=== PATIENT | female | born 1970 | race Caucasian/White ===

== ENCOUNTER 2017-02-19 09:56 | Emergency (ER) | payer SELFPAY ==
--- NOTE | 2017-02-19 10:36 | ED Physician Documentation ---
General Adult - HISTORIAN Historian: patient - HPI Stated Complaint: Right Hand Pain Chief Complaint: General Adult Onset: hours Timing: still present Severity: moderate Further Comments: yes (Pt is a 46 yo female with R wrist pain. 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 Pain shoots into forearm.) - ROS CONST: no problems EYES/ENT: none CVS/RESP: none GI/: none MS/SKIN/LYMPH: other (R wrist pain) - PAST HX Past History: other (Thyroid d/o.) Surgeries/Procedures: hysterectomy, other (tonsillectomy) Allergies/Adverse Reactions: Allergies Allergy/AdvReac Type Severity Reaction Status Date / Time azithromycin [From Zithromax] Allergy Severe Hives Verified 02/19/17 10:04 clindamycin Allergy Severe Hives Verified 02/19/17 10:04 doxycycline Allergy Severe Hives Verified 02/19/17 10:04 levofloxacin [From Levaquin] Allergy Severe Hives Verified 02/19/17 10:04 metronidazole [From Flagyl] Allergy Severe Hives Verified 02/19/17 10:04 Metronidazole HCl Allergy Severe Hives Verified 02/19/17 10:04 [From Flagyl] Penicillins Allergy Severe Tongue Verified 02/19/17 10:04 Swelling sulfamethoxazole Allergy Intermediate Hives Verified 02/19/17 10:04 [Sulfamethoxazole] - SOCIAL HX Smoking History: cigarettes - FAMILY HX Family History: No - VITAL SIGNS Vital Signs: Vital Signs Temp Pulse Resp BP Pulse Ox 72 18 161/95 99 02/19/17 09:56 02/19/17 09:56 02/19/17 09:56 02/19/17 09:56 - REVIEWED ASSESSMENTS Nursing Assessment Reviewed: Yes Vitals Reviewed: Yes Progress - Progress Progress: NSAIDS wrist splint ED Results Lab/Radiology - Orders Orders: ED Orders Category Date Time Status WRIST 3 VIEWS OR MORE [RAD] Stat Exams 02/19/17 Ordered General Adult Physical Exam - PHYSICAL EXAM GENERAL APPEARANCE: mild distress NECK: normal inspection, supple RESPIRATORY: no resp distress SKIN: warm/dry, normal color EXTREMITIES: other (Tenderness R wrist; pos Tinel's and Phalen's sign.) NEURO: oriented X3, motor nml, sensation nml Discharge Clincal Impression: Acute carpal tunnel syndrome Qualifiers: Laterality: right Qualified Code(s): G56.01 - Carpal tunnel syndrome, right upper limb Referrals: Rudy Rios MD [Primary Care Provider] - Condition: Good Disposition: 01 HOME, SELF-CARE Decision to Admit: NO Decision Time: 11:25
[2017-02-19 11:37] VITALS: BP 164/92
--- NOTE | 2017-02-19 18:53 | Diagnostic Imaging Report ---
TREE STRATTON [facility] [address] [facility] [address] [address] Report Submission Date: Feb 19, 2017 11:20:45 AM CDT Patient Study Name: RAMOS WEEKS Date: Feb 19, 2017 10:40:14 AM CDT Modality Type: CR Gender: F Description: UPPER EXTREMITY : 74 Institution: [facility] Physician: TREE STRATTON Right wrist 3 views History: 2 weeks of wrist pain Findings: The wrist is unremarkable without fracture, dislocation, arthropathy, or focal bone lesion. Electronically signed on Feb 19, 2017 11:20:45 AM CDT by: Rogelio DE
== END 2017-02-19 11:35 | disposition home or self-care (01) ==
LOC: ED 09:56
DX: G56.01 Carpal tunnel syndrome, right upper limb (principal)
CPT/HCPCS: 73110; 99283; L3908

== ENCOUNTER 2017-05-23 22:45 | Emergency (ER) | payer SELFPAY ==
[2017-05-23] MEDS: KETOROLAC TROMETHAMINE 30 MG/1ML VIAL IVP ONE (23:30)
[2017-05-23] MEDS: 0.9 % SODIUM CHLORIDE 1,000 ML IV ONE (23:30)
[2017-05-24 00:02] LABS: eGFR (African) > 60; eGFR (Non-African) > 60
--- NOTE | 2017-05-24 00:16 | ED Physician Documentation ---
General Adult - HISTORIAN Historian: patient - HPI Stated Complaint: left hip pain Chief Complaint: General Adult Onset: minutes Timing: worse Further Comments: yes (46 year old female patient brought in for evaluation of left hip. Fell at home after drinking 12 beers. C/O severe left hip pain. Patient reports her left hip has been bothering her, "worse after falling". Unable to straighten left hip completely due to pain.) - ROS CONST: no problems EYES/ENT: none CVS/RESP: none GI/: none MS/SKIN/LYMPH: joint pain (left hip), other (abrasion left forearm and elbow) - PAST HX Past History: other (hypothyroidism) Surgeries/Procedures: other (ovarian cyst removed) Allergies/Adverse Reactions: Allergies Allergy/AdvReac Type Severity Reaction Status Date / Time azithromycin [From Zithromax] Allergy Severe Hives Verified 05/23/17 22:59 clindamycin Allergy Severe Hives Verified 05/23/17 22:59 doxycycline Allergy Severe Hives Verified 05/23/17 22:59 levofloxacin [From Levaquin] Allergy Severe Hives Verified 05/23/17 22:59 metronidazole [From Flagyl] Allergy Severe Hives Verified 05/23/17 22:59 Metronidazole HCl Allergy Severe Hives Verified 05/23/17 22:59 [From Flagyl] Penicillins Allergy Severe Tongue Verified 05/23/17 22:59 Swelling sulfamethoxazole Allergy Intermediate Hives Verified 05/23/17 22:59 [Sulfamethoxazole] Home Medications: Ambulatory Orders Medication Instructions Recorded Levothyroxine Sodium [Unithroid] 175 mcg PO QDAY 05/23/17 - SOCIAL HX Smoking History: cigarettes Alcohol Use: heavy (daily) - FAMILY HX Family History: No - VITAL SIGNS Vital Signs: Vital Signs Temp Pulse Resp BP Pulse Ox 75 16 151/109 98 05/23/17 22:55 05/23/17 22:55 05/23/17 22:55 05/23/17 22:55 - REVIEWED ASSESSMENTS Nursing Assessment Reviewed: Yes Vitals Reviewed: Yes Progress - Progress Progress: 0240 Will not discharge with pain medication. Patient is a daily drinker. Discussed Ramy canales and ERIN. ED Results Lab/Radiology - Lab Results Lab Results: Lab Results 05/23/17 11:44 Sodium 138 mmol/L mmol/L (136-145) Potassium 3.7 mmol/L mmol/L (3.5-5.0) Chloride 109 mmol/L mmol/L (98-110) Carbon Dioxide 26 mmol/L mmol/L (20-32) BUN 7 mg/dL L mg/dL (10-26) Creatinine 0.6 mg/dL mg/dL (0.4-1.5) Estimated Creat Clear 176 Est GFR ( Amer) > 60 (60 - ) Est GFR (Non-Af Amer) > 60 (60 - ) Glucose 97 mg/dL mg/dL (70-99) Calcium 9.4 mg/dL mg/dL (8.5-10.5) Total Bilirubin 0.3 mg/dL mg/dL (0.2-1.2) AST 18 U/L U/L (0-41) ALT 9 U/L U/L (0-45) Alkaline Phosphatase 64 U/L U/L (46-116) Total Protein 7.3 g/dL g/dL (6.0-8.5) Albumin 4.7 g/dL g/dL (3.0-5.5) Ethyl Alcohol 234.0 MG/DL H MG/DL (<10.0) - Radiology Radiology Impressions: Left hip 2 views History: Left hip pain after fall Findings: Soft tissue calcifications are observed along the lateral margin of the left hip. An avulsion fracture is considered less likely but cannot be excluded. The left hip is otherwise intact without dislocation or arthropathy. Impression: Left lateral periacetabular soft tissue calcification or less likely avulsion fracture. Electronically signed on May 24, 2017 12:14:24 AM CDT by: Rogelio Medina - Orders Orders: ED Orders Category Date Time Status Place IV Lock 1T Care 05/23/17 22:58 Active LT HIP 2VIEW COMPLETE [RAD] Stat Exams 05/23/17 Taken CBC/PLATELET/DIFF Stat Lab 05/23/17 11:48 Received CMP Stat Lab 05/23/17 11:44 Completed ETHANOL MEDICAL USE ONLY Stat Lab 05/23/17 11:44 Completed 0.9 % Sodium Chloride [Normal Saline] 1,000 ml Med 05/23/17 22:58 Discontinued IV NOW Ketorolac Tromethamine [Toradol] Med 05/23/17 23:24 Discontinued 30 mg IVP NOW ONE General Adult Physical Exam - PHYSICAL EXAM GENERAL APPEARANCE: strong smell of ETOH EENT: eye inspection normal, ENT inspection normal, pharynx normal, no signs of dehydration, SIRI, no nystagmus, TM's nml RESPIRATORY: no resp distress, chest non-tender, breath sounds normal CVS: reg rate & rhythm, heart sounds normal, equal pulses, no murmur, no gallop , PMI nml, no JVD, no friction rub, 24 ABDOMEN: soft, no organomegaly, normal bowel sounds, no abdominal bruit, no distension SKIN: warm/dry, normal color, other (abrasion left elbow and forearm) EXTREMITIES: tenderness (left hip, ROM limited due to pain) NEURO: oriented X3, CN's nml as tested, motor nml, sensation nml, mood/affect nml Discharge Clincal Impression: Intoxication, Left hip pain, Alcohol abuse Fall at home Qualifiers: Encounter type: initial encounter Qualified Code(s): W19.XXXA - Unspecified fall, initial encounter Referrals: Rudy Rios MD [Primary Care Provider] - 2 Days Home Medications: Ambulatory Orders Levothyroxine Sodium [Unithroid] 175 mcg PO QDAY 05/23/17 Condition: Stable Disposition: 01 HOME, SELF-CARE Decision to Admit: NO Decision Time: 02:14
[2017-05-24 00:34] LABS: BASOPHILS % 0.7 (0.0-1.5); EOSINOPHILS % 2.2 % (0.0-6.8); MEAN CORPUSCULAR VOLUME 94.8 fl (80.0-100.0); MONOCYTES % 4.7 % (0.0-11.0); NEUTROPHILS # 6.4 # k/uL (1.4-7.7)
--- NOTE | 2017-05-24 01:32 | Diagnostic Imaging Report ---
DARIA GASCA ([facility]) - ER [facility] [address] [facility].[address] [address] Report Submission Date: May 24, 2017 12:14:24 AM CDT Patient Study Name: RAMOS WEEKS Date: May 23, 2017 11:56:59 PM CDT Modality Type: CR Gender: F Description: PELVIS : 74 Institution: [facility] Physician: DARIA GASCA) - ER Left hip 2 views History: Left hip pain after fall Findings: Soft tissue calcifications are observed along the lateral margin of the left hip. An avulsion fracture is considered less likely but cannot be excluded. The left hip is otherwise intact without dislocation or arthropathy. Impression: Left lateral periacetabular soft tissue calcification or less likely avulsion fracture. Electronically signed on May 24, 2017 12:14:24 AM CDT by: Rogelio DE
[2017-05-24 03:15] VITALS: BP 108/70
--- NOTE | 2017-05-24 03:41 | Diagnostic Imaging Report ---
DARIA GASCA ([facility]) - ER [facility] [address] [facility] [address] Report Submission Date: May 24, 2017 2:16:56 AM CDT Patient Study Name: RAMOS WEEKS Date: May 24, 2017 1:12:46 AM CDT Modality Type: CT\SR Gender: F Description: CT PELVIS W/O CONTRAST : 74 Institution: [facility] Physician: DARIA GASCA) - ER CT pelvis without contrast Clinical history: Avulsion fracture Technique: Multiple contiguous axial images were taken of the pelvis without the use of contrast. Reformations obtained. Findings: There is a small calcification lateral to the anterior-inferior iliac spine which could reflect an avulsion fracture. Age indeterminate. There is no significant to muscular hematoma identified. Otherwise, no pelvic fractures identified. The pelvic soft tissues are unremarkable. Impression: Age indeterminate avulsion fracture of the left anterior-inferior iliac spine as described above. Electronically signed on May 24, 2017 2:16:56 AM CDT by: Nilson DE
== END 2017-05-24 02:30 | disposition home or self-care (01) ==
LOC: ED 22:45
DX: M25.552 Pain in left hip (principal); W19.XXXA Unspecified fall, initial encounter; Y93.9 Activity, unspecified; Y99.9 Unspecified external cause status; F10.129 Alcohol abuse with intoxication, unspecified
CPT/HCPCS: 72192; 73502; 80053; 80320; 85025; J1885; J7030; 96361; 96374; 99283; G0480; S1016

== ENCOUNTER 2018-04-12 18:06 | Emergency (ER) | payer SELFPAY ==
[2018-04-12] MEDS: MAG HYDROX/ALUMINUM HYD/SIMETH 30 ML, Lidocaine 2%Visc 15ml 20 MG, PHENobarb/HYOSCY/ATR... PO ONE ×3 (19:07)
[2018-04-12] MEDS: MAGNESIUM, ALUMINUM HYDROXIDE 30 ML UDC PO ONE (19:08)
[2018-04-12] MEDS: Lidocaine 2%Visc 15ml 20 MG/ML UDC ONE (19:08)
[2018-04-12 19:10] LABS: BASOPHILS % 0.4 (0.0-1.5); EOSINOPHILS % 3.3 % (0.0-6.8); MEAN CORPUSCULAR HEMOGLOBIN 30.8 pg (28.0-34.0); MEAN CORPUSCULAR VOLUME 95.3 fl (80.0-100.0); MONOCYTES % 4.6 % (0.0-11.0); NEUTROPHILS # 6.7 # k/uL (1.4-7.7)
[2018-04-12 19:24] LABS: eGFR (African) > 60; eGFR (Non-African) > 60
--- NOTE | 2018-04-12 19:29 | ED Physician Documentation ---
General Adult - HISTORIAN Historian: patient - HPI Stated Complaint: HTN Chief Complaint: General Adult Onset: days ago Timing: worse Further Comments: yes (47 year old female patient presents with complaint of headache; acid reflux; hypertension which started a few days ago. Patient reports she took 300mg of zantac out of the med cart at work today with no improvement. Reports BP 146/100 at work. Denies CP or SOB; denies N/V.) - ROS CONST: no problems EYES/ENT: none CVS/RESP: other (hypertension) GI/: other (epigastric pain) NEURO/PSYCH: headache - PAST HX Past History: none Other History: none Surgeries/Procedures: BTL, hysterectomy Allergies/Adverse Reactions: Allergies Allergy/AdvReac Type Severity Reaction Status Date / Time azithromycin [From Zithromax] Allergy Severe Hives Verified 04/12/18 18:24 clindamycin Allergy Severe Hives Verified 04/12/18 18:24 doxycycline Allergy Severe Hives Verified 04/12/18 18:24 levofloxacin [From Levaquin] Allergy Severe Hives Verified 04/12/18 18:24 metronidazole [From Flagyl] Allergy Severe Hives Verified 04/12/18 18:24 Metronidazole HCl Allergy Severe Hives Verified 04/12/18 18:24 [From Flagyl] Penicillins Allergy Severe Tongue Verified 04/12/18 18:24 Swelling sulfamethoxazole Allergy Intermediate Hives Verified 04/12/18 18:24 [Sulfamethoxazole] Home Medications: Ambulatory Orders Medication Instructions Recorded Hydrochlorothiazide [Hydrodiuril] 12.5 mg PO DAILY #30 tablet 04/12/18 Ranitidine HCl [Acid Track Watchman] 150 mg PO HS #30 tablet 04/12/18 - SOCIAL HX Smoking History: cigarettes - FAMILY HX Family History: No - VITAL SIGNS Vital Signs: Vital Signs Temp Pulse Resp BP Pulse Ox 98.1 F 75 16 151/94 99 04/12/18 18:24 04/12/18 19:21 04/12/18 18:24 04/12/18 18:24 04/12/18 18:24 - REVIEWED ASSESSMENTS Nursing Assessment Reviewed: Yes Vitals Reviewed: Yes Progress - Progress Progress: HTN and GERD treated with GI cocktail and clonidine while in Er Will start on ranitidine qhs and HCTZ daily; follow up with PCP for medical management. - EKG/XRAY/CT EKG: rhythm (SR, PVC, rate 77) ED Results Lab/Radiology - Lab Results Lab Results: Lab Results 04/12/18 04/12/18 19:05 19:05 WBC 10.40 K/ul K/ul (4.00-12.00) RBC 4.48 M/ul M/ul (3.90-5.20) Hgb 13.8 g/dL g/dL (12.0-16.0) Hct 42.7 % % (34.5-46.5) MCV 95.3 fl fl (80.0-100.0) MCH 30.8 pg pg (28.0-34.0) MCHC 32.3 g/dL g/dL (30.0-36.0) RDW 12.6 % % (11.3-14.3) Plt Count 245 K/mm3 K/mm3 (130-400) Neut % (Auto) 64.2 % % (39.0-79.0) Lymph % (Auto) 26.0 % % (16.0-50.0) Kane % (Auto) 4.6 % % (0.0-11.0) Eos % (Auto) 3.3 % % (0.0-6.8) Baso % (Auto) 0.4 (0.0-1.5) Neut # (Auto) 6.7 # k/uL # k/uL (1.4-7.7) Lymph # (Auto) 2.7 # k/uL # k/uL (0.6-4.0) Kane # (Auto) 0.5 # k/uL # k/uL (0.0-0.9) Eos # (Auto) 0.3 # k/uL # k/uL (0.0-0.6) Baso # (Auto) 0.0 # k/uL # k/uL (0.0-0.5) Reactive Lymphs % 1.4 % % (0.0-5.0) Reactive Lymphs # 0.2 # k/uL # k/uL (0.0-0.8) Sodium 139 mmol/L mmol/L (136-145) Potassium 3.6 mmol/L mmol/L (3.5-5.1) Chloride 105 mmol/L mmol/L (98-107) Carbon Dioxide 28 mmol/L mmol/L (22-30) BUN 13 mg/dL mg/dL (7-17) Creatinine 0.90 mg/dL mg/dL (0.52-1.04) Estimated Creat Clear 119 Est GFR ( Amer) > 60 (60 - ) Est GFR (Non-Af Amer) > 60 (60 - ) Glucose 106 mg/dL mg/dL (74-106) Calcium 9.0 mg/dL mg/dL (8.4-10.2) Total Bilirubin < 0.1 mg/dL L mg/dL (0.2-1.3) AST 14 U/L L U/L (15-46) ALT 14 U/L U/L (13-69) Alkaline Phosphatase 54 U/L U/L (38-126) Total Protein 6.8 g/dL g/dL (6.3-8.2) Albumin 4.0 g/dL g/dL (3.5-5.0) - Orders Orders: ED Orders Category Date Time Status Continuous EKG monitoring Q30M Care 04/12/18 18:21 Active CHEST 2VIEW [RAD] Stat Exams 04/12/18 19:01 Ordered CBC/PLATELET/DIFF Stat Lab 04/12/18 19:05 Completed CMP Stat Lab 04/12/18 19:05 Completed TROPONIN I (cTnI) Stat Lab 04/12/18 19:05 Received UA W/MICRO IF INDICATED Stat Lab 04/12/18 18:31 Ordered Lidocaine 2%Visc 15ml [Xylocaine] Med 04/12/18 19:03 Discontinued 300 mg .ROUTE .STK-MED ONE Mag Hydrox/Aluminum Hyd/Simeth [Mylanta] 30 ml Med 04/12/18 19:01 Discontinued Lidocaine 2%Visc 15ml [Xylocaine] 20 mg PHENobarb/HYOSCY/ATROPINE/SCOP [] 10 ml PO NOW Magnesium, Aluminum Hydroxide [Maalox] Med 04/12/18 19:03 Discontinued 30 ml PO .STK-MED ONE EKG WITH COMPARISON Routine Ther 04/12/18 Completed General Adult Physical Exam - PHYSICAL EXAM GENERAL APPEARANCE: mild distress EENT: eye inspection normal, ENT inspection normal, pharynx normal, no signs of dehydration, SIRI, no nystagmus, TM's nml RESPIRATORY: no resp distress, chest non-tender, breath sounds normal CVS: reg rate & rhythm, heart sounds normal, equal pulses, no murmur, no gallop , PMI nml, no JVD, no friction rub, 24 ABDOMEN: soft, no organomegaly, normal bowel sounds, no abdominal bruit, no distension SKIN: normal color, warm/dry, NR, INT, PAL, DR EXTREMITIES: non-tender, normal range of motion, no evidence of injury, no edema , J, DAY CARE PROVIDER NEURO: oriented X3, CN's nml as tested, motor nml, sensation nml, mood/affect nml Discharge Clincal Impression: Hypertension Qualifiers: Hypertension type: essential hypertension Qualified Code(s): I10 - Essential ( primary) hypertension GERD (gastroesophageal reflux disease) Qualifiers: Esophagitis presence: without esophagitis Qualified Code(s): K21.9 - Gastro- esophageal reflux disease without esophagitis Prescriptions: Hydrochlorothiazide [Hydrodiuril] 12.5 mg PO DAILY #30 tablet Ranitidine HCl [Acid Track Watchman] 150 mg PO HS #30 tablet Referrals: Rudy Rios MD [Primary Care Provider] - (Next week for BP recheck) Additional Instructions: Diagnosis: 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 Condition: Stable Disposition: 01 HOME, SELF-CARE Decision to Admit: NO Decision Time: 20:45
[2018-04-12] MEDS: CloNIDine HCL 0.1 MG TABLET PO ONE (19:48)
[2018-04-12] MEDS: KETOROLAC TROMETHAMINE 30 MG/1ML VIAL IVP ONE (19:55)
[2018-04-12 20:52] VITALS: BP 155/85
--- NOTE | 2018-04-13 06:49 | Diagnostic Imaging Report ---
DARIA MCGILL ([employer] [employer]) - ER [facility] [address] [address] Report Submission Date: April 12, 2018 7:43:30 PM CDT Patient Study Name: RAMOS RODRÍGUEZ Date: April 12, 2018 7:07:28 PM CDT Modality Type: DX Gender: F Description: CHEST : 74 Institution: [facility] Physician: DARIA MCGILL ([employer]LE DR[employer]INE[employer]) - ER Examination: PA and lateral chest. History: Evaluate lung shannon. CHEST PAIN, HIGH BLOOD PRESSURE, HEADACHE X3 DAYS (Hx) Comparison exam: None available. Findings: PA lateral chest demonstrate a normal cardiac and mediastinal silhouette. No focal infiltrate. No blunting of the costophrenic margins. Mild articular degenerative changes. Impression: No acute pulmonary process. Electronically signed on April 12, 2018 7:43:30 PM CDT by: Christian DE
== END 2018-04-12 20:45 | disposition home or self-care (01) ==
LOC: ED 18:06
DX: K21.9 Gastro-esophageal reflux disease without esophagitis (principal); I10 Essential (primary) hypertension
CPT/HCPCS: 71046; 80053; 84484; 85025; 93005; A9270; J1885; 96374; 99285; S1016

== ENCOUNTER 2018-04-23 09:42 | Outpatient (CLI) | payer SELFPAY | END 2018-04-23 09:43 | LOC: LAB 09:42 | PROVIDERS: ATTEND Family Medicine | DX: E03.9 Hypothyroidism, unspecified (principal) | CPT/HCPCS: 36415; 84443 ==

== ENCOUNTER 2018-05-25 13:43 | Outpatient (CLI) | payer SELFPAY | END 2018-05-25 13:45 | LOC: CARD 13:43 | PROVIDERS: ATTEND Internal Medicine Cardiovascular Disease | DX: I10 Essential (primary) hypertension (principal); R07.9 Chest pain, unspecified | CPT/HCPCS: 99213 ==

== ENCOUNTER 2018-06-29 17:31 | Emergency (ER) | payer SELFPAY ==
--- NOTE | 2018-06-29 18:44 | ED Physician Documentation ---
Lower Extremity Problem - HISTORIAN Historian: patient - HPI Stated Complaint: Bilateral Foot Pain Chief Complaint: Lower Extremity Problem Additional Information: Several week history of foot pain bilateral. Bilateral R>L. Patient denies any trauma to the feet area. No swelling or erythema noted. Seems to be getting worse. Has not had any previous problems. Location of Injury: R foot, L foot Onset: days ago Timing: still present, worse Duration: intermittent episodes Recent Injury: No Severity: moderate Quality: pain, tenderness. denies: swelling, numbness Exacerbated By: walking Relieved By: rest Associated Symptoms: denies: chest pain, shortness of breath, rapid heart rate, fainting - ROS CONST: no problems - PAST HX Past History: none, other (hypothroidism) PE Risk Factors: hypertension Surgeries/Procedures: none Immunizations: referred to PCP Allergies/Adverse Reactions: Allergies Allergy/AdvReac Type Severity Reaction Status Date / Time azithromycin [From Zithromax] Allergy Severe Hives Verified 04/12/18 18:24 clindamycin Allergy Severe Hives Verified 04/12/18 18:24 doxycycline Allergy Severe Hives Verified 04/12/18 18:24 levofloxacin [From Levaquin] Allergy Severe Hives Verified 04/12/18 18:24 metronidazole [From Flagyl] Allergy Severe Hives Verified 04/12/18 18:24 Metronidazole HCl Allergy Severe Hives Verified 04/12/18 18:24 [From Flagyl] Penicillins Allergy Severe Tongue Verified 04/12/18 18:24 Swelling sulfamethoxazole Allergy Intermediate Hives Verified 04/12/18 18:24 [Sulfamethoxazole] Home Medications: Ambulatory Orders Medication Instructions Recorded Ranitidine HCl [Acid Senior Environmental Practice Leader] 150 mg PO HS #30 tablet 04/12/18 Meloxicam [Mobic] 7.5 mg PO BID #60 tablet 06/29/18 - SOCIAL HX Smoking History: less than 1 pack/day (1/2 pppd) - FAMILY HX Family History: no significant history - VITAL SIGNS Vital Signs: Vital Signs Temp Pulse Resp BP Pulse Ox 98.1 F 74 18 120/68 99 06/29/18 17:35 06/29/18 18:54 06/29/18 18:54 06/29/18 18:54 06/29/18 18:54 - REVIEWED ASSESSMENTS Nursing Assessment Reviewed: Yes Vitals Reviewed: Yes ED Results Lab/Radiology - Radiology Radiology Impressions: Bilateral feet, 3 views each. HISTORY Bilateral foot pain, swelling. FINDINGS Bilateral plantar calcaneal spurs are present, left greater than right. Small right Achilles tendon spur is also present. There is no fracture, dislocation or abnormal bone destruction. IMPRESSION Mild degenerative change but no acute osseous abnormality. - Orders Orders: ED Orders Category Date Time Status BILAT FEET 3 VIEW [RAD] Stat Exams 06/29/18 Completed Lower Extremity Problem - EXAM General Appearance: mild distress Knees: bilateral: non-tender, normal inspection, normal range of motion, no evidence of injury Ankle: bilateral: non-tender, normal inspection, normal range of motion, no evidence of injury Foot: bilateral foot: normal range of motion, no evidence of injury, bone tenderness, pain (over the calcaneous, no bony abnl noted), N/A: ecchymosis, soft tissue tenderness (none), swelling (none) Neuro/Tendon: normal sensation EENT: eye inspection normal, ENT inspection normal, pharynx normal, no signs of dehydration RESPIRATORY: no resp distress, chest non-tender, breath sounds normal. No: wheezes, rales, rhonchi CVS: reg rate & rhythm, heart sounds normal, equal pulses, no murmur VASCULAR: no vascular compromise NEURO/PSYCH: oriented X3, motor nml, sensation nml, mood/affect nml, cognition normal SKIN: warm/dry, normal color BACK: normal inspection, no CVA tenderness Discharge Clincal Impression: Plantar fasciitis Prescriptions: Meloxicam [Mobic] 7.5 mg PO BID #60 tablet Referrals: Rudy Rios MD [Primary Care Provider] - 2 Days Additional Instructions: Do plantar fascitis exercises Try using a frozen water bottle as instructed. Take Mobic as directed. I will make appointment with Dr Leigh Condition: Stable Disposition: 01 HOME, SELF-CARE Decision to Admit: NO Date of Decison to Admit: 06/29/18 Decision Time: 18:40
[2018-06-29 19:03] VITALS: BP 120/68
--- NOTE | 2018-06-29 19:07 | Diagnostic Imaging Report ---
CYNTHAI ROMERO [facility] [address] [facility].[address] [address] Report Submission Date: Jun 29, 2018 6:38:53 PM CDT Patient Study Name: RAMOS RODRÍGUEZ Date: Jun 29, 2018 6:09:33 PM CDT Modality Type: DX Gender: F Description: LOWER EXTREMITY : 74 Institution: [facility] Physician: CYNTHIA ROMERO Bilateral feet, 3 views each. HISTORY Bilateral foot pain, swelling. FINDINGS Bilateral plantar calcaneal spurs are present, left greater than right. Small right Achilles tendon spur is also present. There is no fracture, dislocation or abnormal bone destruction. IMPRESSION Mild degenerative change but no acute osseous abnormality. Electronically signed on Jun 29, 2018 6:38:53 PM CDT by: Jose David DE
== END 2018-06-29 18:54 | disposition home or self-care (01) ==
LOC: ED 17:31
DX: M72.2 Plantar fascial fibromatosis (principal)
CPT/HCPCS: 99282

== ENCOUNTER 2018-08-08 18:32 | Emergency (ER) | payer SELFPAY ==
[2018-08-08] MEDS ORDERED: CEPHALEXIN 250 MG CAPSULE PO ONE (19:13)
[2018-08-08] MEDS ORDERED: CEPHALEXIN 250 MG CAPSULE ONE (19:14)
--- NOTE | 2018-08-08 19:17 | ED Physician Documentation ---
Upper Extremity Injury - HISTORIAN Historian: patient - HPI Stated Complaint: red swollen left elbow Chief Complaint: Upper Extremity Injury Onset: days ago (4) Where: home Severity: moderate Duration: worse Context: other (Insect bite) Associated Symptoms: denies: tingling, numbness distally, feeling loss Modifying Factors: other (Feels "tight" when fully straightened. More swelling and erythema today. ) Further Comments: yes (Noted bug bite 4 days ago. Slowly increased swelling and erythema. No fever. Mildly tender.) - ROS CONST: denies: fever CVS/RESP: denies: none NEURO: denies: none MS/SKIN/LYMPH: denies: none - PAST HX Past History: Rt handed Allergies/Adverse Reactions: Allergies Allergy/AdvReac Type Severity Reaction Status Date / Time azithromycin [From Zithromax] Allergy Severe Hives Verified 08/08/18 18:56 clindamycin Allergy Severe Hives Verified 08/08/18 18:56 doxycycline Allergy Severe Hives Verified 08/08/18 18:56 levofloxacin [From Levaquin] Allergy Severe Hives Verified 08/08/18 18:56 metronidazole [From Flagyl] Allergy Severe Hives Verified 08/08/18 18:56 Metronidazole HCl Allergy Severe Hives Verified 08/08/18 18:56 [From Flagyl] Penicillins Allergy Severe Tongue Verified 08/08/18 18:56 Swelling sulfamethoxazole Allergy Intermediate Hives Verified 08/08/18 18:56 [Sulfamethoxazole] Home Medications: Ambulatory Orders Medication Instructions Recorded Ranitidine HCl [Acid Bakeshop Cleaner] 150 mg PO HS #30 tablet 04/12/18 - SOCIAL HX Smoking History: non-smoker - FAMILY HX Family History: none - VITAL SIGNS Vital Signs: Vital Signs Temp Pulse Resp BP Pulse Ox 120/68 06/29/18 18:54 ED Results Lab/Radiology - Orders Orders: ED Orders Category Date Time Status Cephalexin [Keflex] Med 08/08/18 19:13 Discontinued 500 mg PO NOW ONE Upper Extremity Injury Physic - Physical Exam General Appearance: no acute distress, alert Wrist: normal inspection Elbow/Forearm: swelling (Mild with mild erythema.) Neuro/Vascular/Tendon: no vascular compromise Discharge Clincal Impression: Cellulitis, Bug bite Referrals: Rudy Rios MD [Primary Care Provider] - 2 Days (If worsens) Condition: Good Disposition: 01 HOME, SELF-CARE Decision to Admit: NO Decision Time: 19:19
[2018-08-08 19:28] VITALS: BP 156/97
== END 2018-08-08 19:34 | disposition home or self-care (01) ==
LOC: ED 18:32
DX: L03.90 Cellulitis, unspecified (principal); S30.860A Insect bite (nonvenomous) of lower back and pelvis, initial encounter; X58.XXXA Exposure to other specified factors, initial encounter; Y92.9 Unspecified place or not applicable; Y93.9 Activity, unspecified; Y99.9 Unspecified external cause status
CPT/HCPCS: 99283

== ENCOUNTER 2018-08-24 09:51 | Outpatient (CLI) | payer SELFPAY ==
--- NOTE | 2018-08-24 11:59 | Diagnostic Imaging Report ---
CANDY ARTHUR [facility] [address] [facility].[address] [address] Report Submission Date: Aug 24, 2018 10:42:13 AM CDT Patient Study Name: RAMOS RODRÍGUEZ Date: Aug 24, 2018 10:25:40 AM CDT Modality Type: US Gender: F Description: US LT LEG MASS : 74 Institution: [facility] Physician: CANDY ARTHUR Ultrasound left leg mass History: Palpable areas of the left foot Transverse and longitudinal images were obtained through the area of palpable concern along the left foot revealing 3 complex but predominantly solid masses with no internal color flow. There are 2 adjacent larger masses. The largest of these measures 3.7 x 1.7 x 1.0 cm in greatest dimension. The next largest measures 3.2 x 1.0 x 1.2 cm in greatest dimension and the smallest lesion measures 8 x 4 x 5 mm. These lesions are of uncertain etiology ultrasonographically. Consider MRI of the foot with and without gadolinium for further assessment. Impression: Three complex but predominantly solid masses are present in the area of palpable concern along the anterior left foot. No internal flow is detected within these masses but there is some peripheral blood flow. These masses are of uncertain etiology by ultrasound. Consider MRI of the foot with and without gadolinium for further assessment. Electronically signed on Aug 24, 2018 10:42:13 AM CDT by: Carolyne DE
== END 2018-08-24 09:53 ==
LOC: RAD 09:51
PROVIDERS: ATTEND Podiatrist Foot & Ankle Surgery
DX: R22.42 Localized swelling, mass and lump, left lower limb (principal)
CPT/HCPCS: 76882

== ENCOUNTER 2019-01-27 17:03 | Emergency (ER) | payer OTHER ==
[2019-01-27] MEDS: 0.9 % SODIUM CHLORIDE 1,000 ML IV ONE (17:38)
[2019-01-27] MEDS: PROMETHAZINE HCL 25 MG in 0.9 % SODIUM CHLORIDE 50 ML IV ONE (17:41)
[2019-01-27 17:51] LABS: MEAN CORPUSCULAR HEMOGLOBIN 30.2 pg (28.0-34.0)
[2019-01-27 17:52] LABS: BASOPHILS % 0.7 (0.0-1.5); EOSINOPHILS % 2.3 % (0.0-6.8); MONOCYTES % 6.7 % (0.0-11.0); NEUTROPHILS # 5.7 # k/uL (1.4-7.7)
[2019-01-27 17:57] LABS: eGFR (Non-African) > 60
--- NOTE | 2019-01-27 18:11 | ED Physician Documentation ---
General Adult - HISTORIAN Historian: patient - HPI Stated Complaint: n/v, CHAMBERLAIN, dizziness, chills Chief Complaint: Dizziness Additional Information: Patient is a 48-year-old female who presents to the ER with c/o Nausea & dry heaves, dizziness, headache, and chills. Symptoms started Thursday night (2 days ago). 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 She left work early today and went home and slept. She woke up still feeling ill. Onset: days ago Timing: still present Severity: moderate Modifying Factors: Has worked around patients/staff who have been ill Location: works in hospital setting Further Comments: no - ROS CONST: recent illness (was not feeling well last week with cough and congestion), chills EYES/ENT: none CVS/RESP: cough GI/: vomiting, nausea MS/SKIN/LYMPH: other (body aches) NEURO/PSYCH: headache, dizziness - PAST HX Past History: hypertension, other (hypothyroidism) Other History: none Surgeries/Procedures: BTL, hysterectomy Immunizations: influenza, UTD Allergies/Adverse Reactions: Allergies Allergy/AdvReac Type Severity Reaction Status Date / Time azithromycin [From Zithromax] Allergy Severe Hives Verified 01/27/19 17:29 clindamycin Allergy Severe Hives Verified 01/27/19 17:29 doxycycline Allergy Severe Hives Verified 01/27/19 17:29 levofloxacin [From Levaquin] Allergy Severe Hives Verified 01/27/19 17:29 metronidazole [From Flagyl] Allergy Severe Hives Verified 01/27/19 17:29 Metronidazole HCl Allergy Severe Hives Verified 01/27/19 17:29 [From Flagyl] Penicillins Allergy Severe Tongue Verified 01/27/19 17:29 Swelling sulfamethoxazole Allergy Intermediate Hives Verified 01/27/19 17:29 [Sulfamethoxazole] Home Medications: Ambulatory Orders Medication Instructions Recorded Ondansetron HCl Rapdis [Zofran Odt] 4 mg PO Q6 PRN #15 tab 01/27/19 - SOCIAL HX Smoking History: cigarettes, greater than 1 pack/day Alcohol Use: occasionally Drug Use: none - FAMILY HX Family History: Yes (mom & dad ) - VITAL SIGNS Vital Signs: Vital Signs Temp Pulse Resp BP Pulse Ox 98.7 F 80 16 172/98 99 01/27/19 17:03 01/27/19 17:03 01/27/19 17:03 01/27/19 17:03 01/27/19 17:03 ED Results Lab/Radiology - Lab Results Lab Results: Lab Results 01/27/19 01/27/19 17:35 17:35 WBC 9.40 K/ul K/ul (4.00-12.00) RBC 4.93 M/ul M/ul (3.90-5.20) Hgb 14.9 g/dL g/dL (12.0-16.0) Hct 45.2 % % (34.5-46.5) MCV 92.0 fl fl (80.0-100.0) MCH 30.2 pg pg (28.0-34.0) MCHC 32.9 g/dL g/dL (30.0-36.0) RDW 13.1 % % (11.3-14.3) Plt Count 288 K/mm3 K/mm3 (130-400) Neut % (Auto) 59.9 % % (39.0-79.0) Lymph % (Auto) 30.4 % % (16.0-50.0) Gilchrist % (Auto) 6.7 % % (0.0-11.0) Eos % (Auto) 2.3 % % (0.0-6.8) Baso % (Auto) 0.7 (0.0-1.5) Neut # (Auto) 5.7 # k/uL # k/uL (1.4-7.7) Lymph # (Auto) 2.9 # k/uL # k/uL (0.6-4.0) Gilchrist # (Auto) 0.6 # k/uL # k/uL (0.0-0.9) Eos # (Auto) 0.2 # k/uL # k/uL (0.0-0.6) Baso # (Auto) 0.1 # k/uL # k/uL (0.0-0.5) Sodium 140 mmol/L mmol/L (136-145) Potassium 4.0 mmol/L mmol/L (3.5-5.1) Chloride 103 mmol/L mmol/L (98-107) Carbon Dioxide 26 mmol/L mmol/L (22-30) BUN 9 mg/dL mg/dL (7-17) Creatinine 0.70 mg/dL mg/dL (0.52-1.04) Estimated Creat Clear 179 Est GFR ( Amer) > 60 (60 - ) Est GFR (Non-Af Amer) > 60 (60 - ) Glucose 91 mg/dL mg/dL (74-106) Calcium 9.0 mg/dL mg/dL (8.4-10.2) Total Bilirubin 0.5 mg/dL mg/dL (0.2-1.3) AST 15 U/L U/L (15-46) ALT < 6 U/L L U/L (13-69) Alkaline Phosphatase 53 U/L U/L (38-126) Total Protein 6.9 g/dL g/dL (6.3-8.2) Albumin 4.4 g/dL g/dL (3.5-5.0) - Radiology Radiology Impressions: Chest, 2 view History: CXR, COUGH, CONGESTION, DIZZINESS, CHILLS, N/V SINCE TUES., SMOKER Findings: The heart size is normal. The lungs are clear. There is no pleural ef fusion or pneumothorax identified. The osseous structures are normal. Impression: 1. No acute pulmonary disease. Electronically signed on Jan 27, 2019 6:04:01 PM POPULATION GENETICIST by: Lm Nur - Orders Orders: ED Orders Category Date Time Status Place IV Lock 1T Care 01/27/19 17:21 Active CHEST 2VIEW [RAD] Urgent Exams 01/27/19 Ordered CBC/PLATELET/DIFF Stat Lab 01/27/19 17:35 Completed CMP Stat Lab 01/27/19 17:35 Completed INFLUENZA A&B Stat Lab 01/27/19 17:21 Ordered URINALYSIS Routine Lab 01/27/19 Ordered 0.9 % Sodium Chloride [Normal Saline] 1,000 ml Med 01/27/19 17:32 Active IV Q1H Promethazine HCl [Phenergan] 25 mg Med 01/27/19 17:32 Discontinued 0.9 % Sodium Chloride [Normal Saline] 50 ml IV NOW General Adult Physical Exam - PHYSICAL EXAM GENERAL APPEARANCE: mild distress EENT: eye inspection normal, ENT inspection normal, pharynx normal, SIRI NECK: normal inspection RESPIRATORY: no resp distress, chest non-tender, breath sounds normal CVS: reg rate & rhythm, heart sounds normal, equal pulses ABDOMEN: soft, normal bowel sounds, non-tender SKIN: warm/dry, pallor EXTREMITIES: normal range of motion, no edema NEURO: oriented X3, CN's nml as tested, motor nml, sensation nml, mood/affect nml Discharge Clincal Impression: Viral syndrome Prescriptions: Ondansetron HCl Rapdis [Zofran Odt] 4 mg PO Q6 PRN #15 tab PRN Reason: Nausea / Vomiting Referrals: Rudy Rios MD [Primary Care Provider] - 2 Days Additional Instructions: Increase fluid intake Rest Stop Smoking Take Zofran as directed Monitor blood pressure Follow up with PCP next week if no improvement Disposition: 01 HOME, SELF-CARE Decision to Admit: NO Decision Time: 19:20
[2019-01-27 19:13] LABS: APPEARANCE,URINE CLEAR (CLEAR); COLOR,URINE YELLOW (YELLOW)
[2019-01-27 19:14] LABS: OCCULT BLOOD,URINE NEGATIVE (NEGATIVE); UROBILINOGEN URINE 0.2 Eu (0.2-1.0)
[2019-01-27 19:24] VITALS: BP 121/71
--- NOTE | 2019-01-28 03:55 | Diagnostic Imaging Report ---
ARGENTINA MATIAS [facility] [address] [facility].[address] [address] Report Submission Date: Jan 27, 2019 6:04:01 PM WALLPAPER CLEANER Patient Study Name: RAMOS RODRÍGUEZ Date: Jan 27, 2019 5:39:57 PM WALLPAPER CLEANER Modality Type: DX Gender: F Description: CHEST 2VIEW : 74 Institution: [facility] Physician: ARGENTINA MATIAS Chest, 2 view History: CXR, COUGH, CONGESTION, DIZZINESS, CHILLS, N/V SINCE ., SMOKER Findings: The heart size is normal. The lungs are clear. There is no pleural effusion or pneumothorax identified. The osseous structures are normal. Impression: 1. No acute pulmonary disease. Electronically signed on Jan 27, 2019 6:04:01 PM WALLPAPER CLEANER by: Lm DE
== END 2019-01-27 19:00 | disposition home or self-care (01) ==
LOC: ED 17:03
DX: B34.9 Viral infection, unspecified (principal); Z72.0 Tobacco use
CPT/HCPCS: 36415; 71046; 80053; 81002; 85025; 87400; 96365; 99283; 99284; J2550; J7030; S1016

== ENCOUNTER 2019-02-22 11:44 | Outpatient (CLI) | payer OTHER ==
--- NOTE | 2019-02-22 13:40 | Diagnostic Imaging Report ---
CANDY ARTHUR [facility] [address] [facility] [address] [address] Report Submission Date: Feb 22, 2019 1:32:15 PM CDT Patient Study Name: RAMOS RODRÍGUEZ Date: Feb 22, 2019 12:01:46 PM CDT Modality Type: DX Gender: F Description: TOES 2 VIEWS OR MORE : 74 Institution: [facility] Physician: CANDY ARTHUR EXAMINATION: TOES 2 VIEWS OR MORE HISTORY: CYSTS ON TOP OF BOTH FEET. STANDING VIEWS. DR ARTHUR REQUESTED ADDITIONAL VIEWS, SEEN ON OTHER STUDY (SAME ACCESSION NUMBER) (Hx) / ITS.REASON chest (Pt comments) COMPARISON: None FINDINGS/IMPRESSION: No acute fracture or dislocation is identified in the metatarsals of either foot. No soft tissue abnormality is identified. Electronically signed on Feb 22, 2019 1:32:15 PM CDT by: Abner ARTHUR CANDY [facility] [address] [facility] [address] [address] Report Submission Date: Feb 22, 2019 1:28:21 PM CDT Patient Study Name: RAMOS RODRÍGUEZ Date: Feb 22, 2019 11:50:38 AM CDT Modality Type: DX Gender: F Description: BILAT FEET 3 VIEW : 74 Institution: [facility] Physician: CANDY ARTHUR EXAMINATION: BILAT FEET 3 VIEW HISTORY: CYSTS ON TOP OF BOTH FEET. STANDING VIEWS. DR ARTHUR REQUESTED ADDITIONAL VIEWS, SEEN ON OTHER STUDY (SAME ACCESSION NUMBER) (Hx) / ITS.REASON chest (Pt comments) COMPARISON: None FINDINGS: Right foot: The osseous structures are intact and well aligned without acute fracture or dislocation. There is a mild 1st metatarsophalangeal joint arthritis. Bone density is normal. No soft tissue swelling is seen. Calcaneal spurs are noted. Left foot: The osseous structures are intact and well aligned without acute fracture or dislocation. The joint spaces are preserved. Bone density is normal. A large calcaneal spur is noted. There is soft tissue thickening in the region of the reported top of foot cysts without calcification. IMPRESSION: 1. Left foot: Soft tissue thickening in the region of the reported top of foot cysts without evidence of associated calcification or underlying bony abnormality. Calcaneal spur. 2. Right foot: No evidence of soft tissue abnormality. Calcaneal spurs. Electronically signed on Feb 22, 2019 1:28:21 PM CDT by: Abner DE
== END 2019-02-22 11:46 ==
LOC: RAD 11:44
PROVIDERS: ATTEND Podiatrist Foot & Ankle Surgery
DX: M72.2 Plantar fascial fibromatosis (principal); M25.80 Other specified joint disorders, unspecified joint

== ENCOUNTER 2019-03-09 13:49 | Outpatient (CLI) | payer OTHER ==
--- NOTE | 2019-03-10 17:21 | OP Clinic Progress Note ---
SUBJECTIVE: Della Pruett is a 48-year-old female who presented to the clinic today mainly for follow-up of the left foot soft tissue masses. She is here for a preop visit. Upon our discussion she admits that she has a tobacco dependency for which she is smoking about a half pack of cigarettes per day. After a long discussion today she understands that we will need to postpone surgery until she is free of smoking for at least 1 month. She does not admit to any fevers, chills, nausea, vomiting, shortness of breath or chest pain at this time. She is using a boot on the right foot due to her pain under the tibial sesamoid. She states it helps with the boot. She is continuing to have some pain with the masses on the left foot with pressure with shoes. Her primary care physician is Dr. Rios. She understands we may need clearance from him as well before surgery. OBJECTIVE: Vitals: Temperature 98.4 degrees Fahrenheit, heart rate 78, blood pressure 114/40 which was retaken again and found to be 137/92. O2 saturation is 98% on room air. Pain level is 8/10. Vascular: 2+ DP and PT pulses, left foot. Capillary refill time is slightly delayed at about 3-4 seconds to the toes of the left foot. There is no edema noted, however, there is soft tissue masses that are palpable, left foot. Musculoskeletal: There is still noted a large dorsal mass of the left second intermetatarsal area. This is palpated to be a soft tissue mass fairly firm and noted to extend from over the first to the second metatarsal and also between the first and second metatarsals on the MRI. There are no other gross abnormalities noted at this time, left foot. The right foot was not examined today as we are focused on the preop appointment today of the left. Neurologic: Light touch sensation is intact to the toes, left foot. Psychiatric: Mental status is grossly normal. Affect is normal. ASSESSMENT AND PLAN: Soft tissue mass; M79.9 with a bulla underneath left foot. After a long discussion about the planned procedure including consent and so forth and discussing bleeding, infection and possibility of not healing as well as need for additional surgery or hematoma or infection that could lead to amputation or loss of life, the patient has agreed both by written and verbal consent to go for the surgery at this time. However, after further discussion and finding out that she has a tobacco dependency I decided that I do not feel comfortable doing surgery on her until she shows me that she has quit smoking for at least 1 month. The patient is disappointed but willing to do so. She will work on lessening her smoking over the next week to week and a half and make sure she has quit before 1 month before surgery. Our plan is to plan for surgery on 04/20/19. She knows she needs to see me again for another preop appointment where we will do a full physical exam and everything including consent forms sometime in early March. The patient understands that this is the plan and elective surgery is difficult for me to feel comfortable going forward with when we are dealing with smoking. The patient will return to the clinic in early March for a preop appointment officially. I believe that we will need to consider getting clearance from Dr. Rios for surgery as he is his primary care doctor as well. We reviewed her MRI together as well today. We will likely get a CBC, CMP, EKG and chest x-ray for preop labs at that time. The patient has no questions at this time. We will see her in the beginning of March. Louis Leigh, Rosie.P.M. (Dictated/Not Signed) Tonie Job#: [id number] MTDD
== END 2019-03-09 13:51 ==
LOC: POD 13:49
PROVIDERS: ATTEND Podiatrist Foot & Ankle Surgery
DX: M79.9 Soft tissue disorder, unspecified (principal); R23.8 Other skin changes; F17.210 Nicotine dependence, cigarettes, uncomplicated
CPT/HCPCS: 99212

== ENCOUNTER 2019-03-31 08:14 | Outpatient (CLI) | payer OTHER ==
--- NOTE | 2019-04-04 07:57 | History and Physical Report ---
CHIEF COMPLAINT: Left foot masses. HISTORY OF PRESENT ILLNESS/INDICATION FOR PLANNED PROCEDURE: Della Pruett is a 48-year-old female who presents to the clinic today for follow-up of left foot soft tissue masses. We have planned to excise these masses. She has had an MRI done showing multiple masses mainly between and over the first and second metatarsals of the left foot. The patient was seen previously on 03/09/19 where we found out that she was smoking regularly. She since then has quit and she has been quit for just over 1 month now and has not smoked any cigarettes or done any sort of nicotine since then. The patient is committed and understands the importance of continuing to stay off of smoking after surgery as well while healing. The patient presents today for a full History and Physical exam in preparation for surgery that hopefully will be performed on 04/20/19. The patient does not admit to any fevers, chills, nausea, vomiting, shortness of breath or chest pain at this time. This patient has been dealing with these masses in her left foot for quite some time now. They have grown to a size that have become painful with any sort of shoegear due to pressure over the top of the mass. The patient would like to have it removed as it has been difficult for her and painful for awhile now. PAST MEDICAL HISTORY: The patient denies a history of diabetes, hepatitis, bleeding disorders, AIDS or HIV, anesthesia problems in the past, cardiovascular disease, COPD or pulmonary disease, stroke nor substance abuse. The patient does admit to having previously smoked a half pack per day of cigarettes but she has quit just over 1 month ago and has not done any nicotine or cigarettes since then. She also admits to ethyl alcohol 1-2 times per week. PAST SURGICAL HISTORY: She had a tonsillectomy performed previously. She also had a partial hysterectomy performed which was back in 1997. She denies any anesthesia issues during that surgery. FAMILY HISTORY: She admits that her dad has a history of CHF as well as hypertension. Her mom has a history of chronic immune demyelinating polyneuropathy. SOCIAL AND OCCUPATIONAL HISTORY: The patient works at the hospital. She also has 2 stairs getting into her house. She has been using a boot on the right leg for something else and feels that she will do just fine using a boot on her left side when she switches the boot to the left side after surgery. REVIEW OF SYSTEMS: General: The patient denies any overall sickness or discomfort. Skin: No rashes or abnormal skin changes recently. Eyes: She denies any visual changes or pain in the eyes. Cardiovascular: No palpitations or chest pain. Gastrointestinal: No blood or pain in bowel movements. Genitourinary: No blood or pain with urination. Neurologic: The patient admits to occasional tingling that is in the left great toe area mainly on occasion. Ears, nose and throat: No trouble swallowing, pain or any issues in those areas. Pulmonary: No shortness of breath. Musculoskeletal: Left foot soft tissue masses that she is aware of. She also is aware of recent diagnosis of right tibial sesamoiditis which we have had her in a boot for recently and she is having some improvement slightly. Psychiatric: No history of anxiety or depression. CURRENT MEDICATIONS: Hydrochlorothiazide 25 mg daily by mouth; levothyroxine 0.175 mcg daily by mouth. The patient also admits to some herbal supplements which she was discouraged from using the 2 weeks leading up to surgery. The patient understands. ALLERGIES AND REACTIONS: THE PATIENT ADMITS TO HAVING A REACTION OF HIVES WITH FLAGYL, AZITHROMYCIN, BACTRIM, CLINDAMYCIN, DOXYCYCLINE, AND LEVOFLOXACIN. THE PATIENT ALSO ADMITS TO HAVING A BLACK TONGUE AND SWELLING WHEN SHE TOOK PENICILLIN. SHE ADMITS THAT THE ONLY MEDICATION SHE KNOWS SHE IS FINE ON IS KEFLEX AND SHE ADMITS THAT SHE WAS PLACED ON A Z-GEOFFREY WITH BENADRYL AND SHE DID WELL WITH THAT. SHE IS VERY LIMITED ON ANTIBIOTICS THAT CAN BE USED. PERTINENT PHYSICAL EXAM: Mental status: The patient is alert, awake and oriented x3. Head and neck: She is atraumatic, and normocephalic. No tracheal deviation. Eyes: Extraocular movements are intact in all directions as well as concentrically. No obvious issues upon visual exam grossly. Heart: Normal S1 and S2 rhythm. Neurologic: Light touch sensation is intact and symmetric to bilateral lower extremities. Ears, nose and throat: There is no obvious tracheal deviation. There is no pain with palpation in front of or behind the ears, or under the jaw. Lungs: Clear to auscultation bilaterally. Vascular: 2+ DP and PT pulses, left foot. Capillary refill time is less than 3 seconds to the toes, left foot. There is no edema noted, however, there are soft tissue masses noted. Musculoskeletal: There is a prominent soft tissue mass noted between the first and second metatarsals and slightly overlying the second metatarsal, left foot. This seems encapsulated upon MRI. There is mild pain with palpation if I press too hard. There are no other gross abnormalities noted, left foot. Lymph: There are no palpable lymph nodes along the jaw line nor preauricular or postauricular bilaterally. ASSESSMENT AND PLAN: 1. Soft tissue masses, left foot. 2. Preoperative labs. 3. Right tibial sesamoiditis (from previous exam). Due to the long nature of these soft tissue masses and increase in size that have now become painful to the patient we have decided to obtain an MRI which demonstrated multiple soft tissue masses, likely ganglion cyst versus multiloculated lipoma. The patient has elected to go ahead and have these removed at this time. She has done her part to quit smoking and has stopped smoking over 1 month ago and has been free of any sort of cigarettes or nicotine since then. She understands she needs to continue this non-smoking while she is healing at least. The risks and benefits of soft tissue masses excision of the left foot was discussed with the patient that include but are not limited to bleeding, infection, possible recurrence of the soft tissue masses, possible hematoma which could also lead to infection or additional procedure to remove the hematoma, loss of limb and loss of life and numbness. The patient understood the risks and benefits and has agreed to go forward with surgery at this time. The consent was signed and placed in the chart. A second in depth illustration and explanation of the plan for surgery pre and postoperatively were discussed with the patient. This includes planning on being in a boot for potentially 4-6 weeks at a minimum with potential to increase or decrease in time. The patient understands that she will not be able to eat or drink anything after midnight the night before surgery. She was told no anti-inflammatory medications such as ibuprofen and Motrin 1 week before surgery. No herbal medicines/diet drugs allowed 2 weeks before surgery. This was all discussed with the patient today. She signed as well seeing an illustration of where the soft tissues masses will be located and where the incision will take place and removed. She also understands that we will likely have to place a drain to try and prevent a hematoma. She initialed understanding this as well. More in depth discussion was had with the patient regarding pre and postoperative information. The patient has no further questions at this time. She is looking forward to having these removed and is planning for surgery on the of this month as long as we can get it approved and have the surgical staff we need. The patient will also have a clearance form sent over by Dr. Rios who is her primary care doctor. As long as we have clearance from him as well as her CBC, CMP, EKG and chest x-ray all look good we will be able to likely plan on surgery for the end of this month. We will plan on seeing the patient again later this month. She knows to come see me for a first metatarsal head cutout of an insert that she can use in her right shoe while she ends up moving the boot to the left foot in order to offload that tibial sesamoid that has been a little bit in pain. We discussed that we may be able to do a steroid injection in the first metatarsophalangeal joint of the right foot. I would like to wait on doing any sort of steroid injection until after surgery and after she has healed, however, in order to limit any chance of decreased healing during that time. We will have to wait until she is healed in order to consider doing more treatment on that right first metatarsophalangeal joint to the sesamoiditis area. The patient has no further questions and we will see her later this month for surgery. We will notify her of any issues or plans for more definitive surgery for 04/20/19 hopefully at 7 a.m. This will likely take approximately 90 minutes and we may consider using an ultrasound machine to try and make sure we got everything out if possible. We will also need a MANDA drain. We will plan on a MAC with local unless Anesthesia deems it necessary to transition her to a general anesthesia. The patient understands this. Louis Leigh D.P.M. (Dictated/Not Signed) Tonie Job#: [id number] MTDD
== END 2019-03-31 08:16 ==
LOC: POD 08:14
PROVIDERS: ATTEND Podiatrist Foot & Ankle Surgery
DX: Z01.812 Encounter for preprocedural laboratory examination (principal); M79.89 Other specified soft tissue disorders
CPT/HCPCS: 99213

== ENCOUNTER 2019-04-06 10:40 | Outpatient (CLI) | payer OTHER ==
[2019-04-06 11:02] LABS: BASOPHILS % 0.5 % (0.0-1.5); EOSINOPHILS % 2.2 % (0.0-6.8); MEAN CORPUSCULAR HEMOGLOBIN 30.4 pg (28.0-34.0); MONOCYTES % 6.1 % (0.0-11.0); NEUTROPHILS # 7.4 # k/uL (1.4-7.7)
== END 2019-04-06 10:43 ==
LOC: LAB 10:40
PROVIDERS: ATTEND Podiatrist Foot & Ankle Surgery
DX: Z01.812 Encounter for preprocedural laboratory examination (principal); M25.872 Other specified joint disorders, left ankle and foot; R22.42 Localized swelling, mass and lump, left lower limb
CPT/HCPCS: 36415; 80053; 85025

== ENCOUNTER 2019-04-25 11:23 | Outpatient (CLI) | payer OTHER | END 2019-04-25 11:50 | LOC: POD 11:23 | PROVIDERS: ATTEND Podiatrist Foot & Ankle Surgery | DX: Z47.81 Encounter for orthopedic aftercare following surgical amputation (principal); Z89.432 Acquired absence of left foot | CPT/HCPCS: 87070; 99213 ==

== ENCOUNTER 2019-05-05 10:50 | Outpatient (CLI) | payer OTHER | END 2019-05-05 11:15 | LOC: POD 10:50 | PROVIDERS: ATTEND Podiatrist Foot & Ankle Surgery | DX: Z48.817 Encounter for surgical aftercare following surgery on the skin and subcutaneous tissue (principal) ==

== ENCOUNTER 2019-05-12 10:55 | Outpatient (CLI) | payer OTHER | END 2019-05-12 11:05 | LOC: POD 10:55 | PROVIDERS: ATTEND Podiatrist Foot & Ankle Surgery | DX: Z48.817 Encounter for surgical aftercare following surgery on the skin and subcutaneous tissue (principal) | CPT/HCPCS: 99213 ==

== ENCOUNTER 2019-05-18 15:00 | Outpatient (CLI) | payer OTHER | END 2019-05-18 15:30 | LOC: POD 15:00 | PROVIDERS: ATTEND Podiatrist Foot & Ankle Surgery | DX: Z48.814 Encounter for surgical aftercare following surgery on the teeth or oral cavity (principal) | CPT/HCPCS: 99213 ==

== ENCOUNTER 2019-07-13 13:45 | Outpatient (CLI) | payer OTHER ==
[2019-06-20 19:18] VITALS: BP 151/98
== END 2019-07-13 13:47 ==
LOC: LAB 13:45
PROVIDERS: ATTEND Family Medicine
DX: M25.539 Pain in unspecified wrist (principal); E03.9 Hypothyroidism, unspecified
CPT/HCPCS: 36415; 84443

== ENCOUNTER 2019-10-17 13:54 | Emergency (ER) | payer OTHER ==
--- NOTE | 2019-10-17 14:22 | ED Physician Documentation ---
General Adult - HISTORIAN Historian: patient - HPI Stated Complaint: L hip pain Chief Complaint: General Adult Onset: other (bagan > 1 month ago) Timing: still present, worse Severity: moderate Further Comments: yes (Pt is a 49 yo female with L hip pain that began more than a month ago. Pain has been getting worse and sometime wakes pt up at night. Pt has been using Tylenol/Motrin. Worse with weight bearing.) - ROS CONST: no problems EYES/ENT: none CVS/RESP: none GI/: none MS/SKIN/LYMPH: other (L hip pain) - PAST HX Past History: other (GERD, HTN, Thyroid d/o.) Surgeries/Procedures: hysterectomy, other (tonsillectomy, ortho surg.) Allergies/Adverse Reactions: Allergies Allergy/AdvReac Type Severity Reaction Status Date / Time azithromycin [From Zithromax] Allergy Severe Hives Verified 10/17/19 14:09 clindamycin Allergy Severe Hives Verified 10/17/19 14:09 doxycycline Allergy Severe Hives Verified 10/17/19 14:09 levofloxacin [From Levaquin] Allergy Severe Hives Verified 10/17/19 14:09 metronidazole [From Flagyl] Allergy Severe Hives Verified 10/17/19 14:09 Metronidazole HCl Allergy Severe Hives Verified 10/17/19 14:09 [From Flagyl] Penicillins Allergy Severe Tongue Verified 10/17/19 14:09 Swelling sulfamethoxazole Allergy Intermediate Hives Verified 10/17/19 14:09 [Sulfamethoxazole] - SOCIAL HX Smoking History: cigarettes - FAMILY HX Family History: No - VITAL SIGNS Vital Signs: Vital Signs Temp Pulse Resp BP Pulse Ox 98.4 F 83 16 151/78 98 10/17/19 13:55 10/17/19 13:55 10/17/19 13:55 10/17/19 13:55 10/17/19 13:55 - REVIEWED ASSESSMENTS Nursing Assessment Reviewed: Yes Vitals Reviewed: Yes Progress - Progress Progress: Toradol 60 mg IM Solu-medrol 125 mg IM Rx [place] (5/325). Take one or two tablets by mouth every 4 to 6 hours as needed for moderate to severe pain. Ortho referral pending. ED Results Lab/Radiology - Orders Orders: ED Orders Category Date Time Status LT HIP 2VIEW COMPLETE [RAD] Stat Exams 10/17/19 Ordered PELVIS AP 1 OR 2 VIEWS [RAD] Stat Exams 10/17/19 Ordered General Adult Physical Exam - PHYSICAL EXAM GENERAL APPEARANCE: mild distress NECK: normal inspection, supple RESPIRATORY: no resp distress, chest non-tender, breath sounds normal CVS: reg rate & rhythm, heart sounds normal ABDOMEN: soft, no organomegaly, normal bowel sounds BACK: normal inspection SKIN: warm/dry, normal color EXTREMITIES: other (L hip pain, worse with flexion/extension; no LE rotation or shortening.) NEURO: oriented X3, motor nml, sensation nml Discharge Clincal Impression: L hip pain, musculoskeletal pain Referrals: Rudy Rios MD [Primary Care Provider] - Condition: Stable Disposition: 01 HOME, SELF-CARE Decision to Admit: NO Decision Time: 15:33
--- NOTE | 2019-10-17 14:46 | Diagnostic Imaging Report ---
PATIENT MR#: [id number] PATIENT PATIENT NAME: RAMOS RODRÍGUEZ DATE OF : 1970 REFERRING PHYSICIAN: Royer Christianson EXAM DATE: 10/17/2019 ACCESSION NUMBER: [id number] EXAM DESCRIPTION: PELVIS AP 1 OR 2 VIEWS Exam: pelvis two views Indication: ORDER STATES LT HIP PAIN PT STATES LT HIP PAIN AND POPPING FOR X1 MONTH NO KNOWN INJURY. NO PRIOR EXAMS. (Hx) / Note time : 10/17/2019 2:40:42 PM User : Bernabe Hurtado ORDER STATES LT HIP PAIN PT STATES LT HIP PAIN AND POPPING FOR X1 MONTH NO KNOWN INJURY. NO PRIOR EXAMS. (DICOM Hx) (DICOM Hx) Findings: No acute fracture, subluxation, dislocation or other osseous abnormality is identified. If clinical symptoms persist follow up examination may be warranted to exclude an occult process. Impression: No acute osseous abnormality. Read by: Dr. Everardo Jason Transcribed by: Transcribed Date: Electronically signed by: Dr. Everardo Jason Date signed: 10/17/2019 2:45:40 PM
--- NOTE | 2019-10-17 14:47 | Diagnostic Imaging Report ---
PATIENT MR#: [id number] PATIENT PATIENT NAME: RAMOS RODRÍGUEZ DATE OF : 1970 REFERRING PHYSICIAN: Royer Christianson EXAM DATE: 10/17/2019 ACCESSION NUMBER: [id number] EXAM DESCRIPTION: LT HIP 2VIEW COMPLETE Exam: Left hip two views Indication: ORDER STATES LT HIP PAIN PT STATES LT HIP PAIN AND POPPING FOR X1 MONTH NO KNOWN INJURY. NO PRIOR EXAMS. (Hx) / Note time : 10/17/2019 2:40:28 PM User : Bernabe Hurtado ORDER STATES LT HIP PAIN PT STATES LT HIP PAIN AND POPPING FOR X1 MONTH NO KNOWN INJURY. NO PRIOR EXAMS. (DICOM Hx) (DICOM Hx) Findings: No acute fracture, subluxation, dislocation or other osseous abnormality is identified. Bony deminera lization is present. If clinical symptoms persist follow up examination may be warranted to exclude an occult process. Impression: No acute osseous abnormality. Read by: Dr. Everardo Jason Transcribed by: Transcribed Date: Electronically signed by: Dr. Everardo Jason Date signed: 10/17/2019 2:46:56 PM
[2019-10-17] MEDS ORDERED: KETOROLAC TROMETHAMINE 60 MG/2 ML VIAL IM ONE (14:54)
[2019-10-17] MEDS ORDERED: methylPREDNISolone SOD SUCC 125 MG/2 ML VIAL IM ONE (15:09)
[2019-10-17 15:40] VITALS: BP 132/76
== END 2019-10-17 15:38 | disposition home or self-care (01) ==
LOC: ED 13:54
DX: M25.552 Pain in left hip (principal)
CPT/HCPCS: 72170; 73502; 96372; 99284; J1885; J2930

== ENCOUNTER 2019-11-02 12:21 | Outpatient (CLI) | payer OTHER ==
--- NOTE | 2019-11-02 17:23 | Diagnostic Imaging Report ---
PATIENT MR#: [id number] PATIENT PATIENT NAME: RAMOS RODRÍGUEZ DATE OF : 1970 REFERRING PHYSICIAN: SAURABH JUAN EXAM DATE: 11/02/2019 ACCESSION NUMBER: [id number] EXAM DESCRIPTION: L SPINE 4 VIEWS CLINICAL HISTORY: PAIN IN LEFT HIP WITH SOME LOW BACK PAIN COMPARISON: No relevant comparison is available at the time of interpretation. L-SPINE XRAY, 5 views including obliques: Vertebral bodies: No compression deformities. Disc spaces: Moderate degenerative disc disease at L1-2, L4-5 and L5-S1. Alignment: Normal lumbar lordosis without listhesis. Facets: Degenerative arthrosis at L5-S1. There is thinning of the L5 pars interarticularis, without f rank spondylolysis. IMPRESSION: 1. Moderate degenerative disc disease at L1-2, L4-5 and L5-S1. 2. Low lumbar facet arthrosis. Read by: Dr. Shelton Quiros Transcribed by: Shelton Quiros Transcribed Date: 11/02/2019 5:22:36 PM Electronically signed by: Dr. Shelton Quiros Date signed: 11/02/2019 5:22:36 PM
--- NOTE | 2019-11-02 17:25 | Diagnostic Imaging Report ---
PATIENT MR#: [id number] PATIENT PATIENT NAME: RAMOS RODRÍGUEZ DATE OF : 1970 REFERRING PHYSICIAN: SAURABH JUAN EXAM DATE: 11/02/2019 ACCESSION NUMBER: [id number] EXAM DESCRIPTION: SACRUM COCCYX 2 VIEW+ CLINICAL HISTORY: PAIN IN LEFT HIP WITH SOME LOW BACK PAIN COMPARISON: No relevant comparison is available at the time of interpretation. SACRAL XRAY, 3 Views: Sacral bodies: No cortical deformity to suggest acute fracture. Coccygeal elements: No displaced fractures. Alignment: Normal coccygeal curvature without listhesis. IMPRESSION: Intact sacrum. Read by: Dr. Shelton Quiros Transcribed by: Shelton Quiros Transcribed Date: 11/02/2019 5:24:22 PM Electronically signed by: Dr. Shelton Quiros Date signed: 11/02/2019 5:24:22 PM
--- NOTE | 2019-11-07 12:08 | CONSULTATION REPORT ---
DATE OF CONSULTATION: 11/03/2019 CHIEF COMPLAINT: Left hip pain. HISTORY OF PRESENT ILLNESS: This 49-year-old white female, mildly obese with calculated BMI of 31.93, is seen for recommendations regarding left hip pain which she reports began a couple of months ago. She says she does not have a metal allergy, indicates the pain was gradual in onset, reports it is currently constant. She did go to the emergency department at [facility] 10/17/2019 and had an assessment of musculoskeletal left hip pain per Dr. Royer Christianson M.D. in the emergency department. She was referred to Dr. Rudy Rios, primary care physician. The patient did, 10/17/2019, undergo x-rays of the left hip and of the pelvis. No acute fracture, subluxation, dislocation or other osseous abnormality was identified on either study, read by Dr. Everardo Jason. If clinical symptoms persist, follow-up exam may be warranted to exclude an occult process. I did note the patient received [place] 5/325 and, in addition to that prescription, received Toradol 60 mg IM and Solu-Medrol 125 mg IM. The patient reports symptoms persist. She does have pain located in the front, inside and outside of the left hip. She reports the quality of her pain is sharp, indicates it is about 5/10 in pain at rest, and 10/10 with activity. She does report it is worse with squatting, kneeling, rising after sitting, pivoting, lateral movements, getting in and out of a car or chair. Rest makes it a little better. Pain has progressed with activities of daily living. She does have night pain and it awakens her at night. She does not report a fear of falling. She does experience some catching, giving out and clicking in that left hip. She indicates mild difficulty in walking and getting around. She has not used any ambulatory assistive devices. She has tried taking [id number] medication such as Aleve and ibuprofen for several months, without significant improvement. She has also taken Tylenol. She does indicate having tried modifying her activities without improvement, doing more and doing less exercise, without change. She does note some weakness in the left lower extremity. She does report intermittent back pain, says she has an L4-5 bulging disc diagnosed in the past. She has not observed radiating pain into the knee, back, leg or foot. She has never had hip surgery. PAST MEDICAL HISTORY: The patient lists past medical history as positive for back pain, bronchitis, hypertension diagnosed in 2019, left hip joint pain, hyperthyroidism as well as hypothyroidism and goiter. The patient indicates that she has not had trouble with intubation during surgery and has not been considered to be a difficult intubation. She reports she does have temporomandibular joint disorder. PAST SURGICAL HISTORY: The patient's previous surgery includes 1997 cyst removal on ovaries at [facility], partial hysterectomy in 1997 and tonsillectomy in 2000, both at [facility]. She underwent foot surgery performed by Dr. Leigh in [place], [place], 2019. SOCIAL HISTORY: She does smoke currently, one-half pack per day, and has for 15 years. She denies regular alcohol use except on a social basis occasionally. She reports no history of alcohol abuse. She denies illicit drug use, abuse or history of same. She does not take fish oil. She works as a certified nurse desk assistant. The patient does report for exam with Keyur Seble, her . The patient is , has had two children. No miscarriages or abortions. MEDICATIONS: Her current medications are listed to include levothyroxine, hydrochlorothiazide and [place]. The [place] was prescribed just recently at the emergency department, she reports. ALLERGIES: She does report allergies to Zithromax, clindamycin, sulfa medications, Flagyl, penicillin and doxycycline. She reports these medications cause various rashes and welts. FAMILY HISTORY: She reports family history is positive for cancer in paternal grandmother; diabetes in maternal grandmother; hypertension in mother, father, paternal grandmother and paternal grandfather; heart attack in mother, father and paternal grandmother; heart disease in maternal grandmother; obesity in father and paternal grandmother; stroke in mother and paternal grandmother. REVIEW OF SYSTEMS: She lists positive corrective lenses, positive bronchitis, positive hyperthyroidism/hypothyroidism. She does not list additional symptoms in constitutional, skin/breast, ENT, cardiovascular, gastrointestinal, genitourinary, psychiatric, neurologic, endocrine, eyes or respiratory. PHYSICAL EXAMINATION: Vital signs are recorded, revealing temperature of 98.5, pulse 65, blood pressure 117/81 with a respiratory rate of 20. Oxygen saturation is 98% on room air. She rates her pain as 9/10 at the time of evaluation. HEENT: Normocephalic. Neck: Supple. Lungs: Clear to percussion bilaterally. Cardiovascular: Regular rate and rhythm with pulses present and symmetric, radial aspect of wrists and the posterior tibialis bilaterally. Abdomen: Soft, nontender. Extremity exam: The patient does have tenderness in the left lower lumbar region, just above the sacrum, to palpation. She says it is quite tender and it surprises her that it is so. On palpation of this region, she also experiences some anterior groin pain on the left. She does report having had difficulty sleeping on one side or the other, hurts to do so in her left hip area, mainly in the front of the hip. She does report that she is surprised she hurts in the back of the hip/lower lumbar region as much as she does. She says she had had some trouble from the L4-5 disc bulge, but that has not felt like the pain that she experiences on palpation. The patient does have good range of motion of the right hip. On the left, she also has fairly good range of motion, some pain with flexion and both internal and external rotation, left hip. There is no obvious discomfort on simulated weightbearing through the left lower extremity. The patient does have some pain on both adduction and abduction of the left hip passively on the table. There is [id number] hamstring tightness appreciated bilaterally. The patient has mild limitation in flexion and extension, both hips. The patient has grossly intact motor and sensory exam distally, both lower extremities, able to dorsiflex and plantarflex the ankles actively against resistance, normal skin color and appearance distally with good capillary refill distally, both lower extremities. She ambulates somewhat slowly without obvious limp, however. She says she does limp if she tries to move very fast. She sometimes experiences some snapping in the left hip with various flexion activities, but is not doing that currently. X-RAYS: I did obtain plain film x-rays of the lumbosacral spine, given the appearance upon my review of possible bony abnormality in the left side of L5 vertebrae, upon my review of her AP pelvis and hip x-rays which otherwise reveal good femoroacetabular joint space preservation, no acute bony abnormalities. Lumbosacral spine films do reveal some facet joint changes/consistent with degenerative disease. I am unable to confirm presence or absence of bony abnormality, left L5 region on the AP lateral and both obliques. There are some diffuse degenerative changes in the lumbosacral region however evident. There is no obvious spondylolisthesis/spondylolysis, and there is normal lumbar lordosis present with satisfactory alignment of vertebral bodies suggested. IMPRESSION: 1. Left-sided lower lumbar/sacral pain, possible fracture. 2. Left hip pain, both anterior and posterior, persistent, present with range of motion of the left hip as well as upon palpation of the left lower lumbar bony prominences on the left. 3. Cigarette smoker (one-half pack per day x 15 years). 4. Mild obesity with BMI of approximately 32. 5. Hypertension diagnosed earlier this year. 6. Hyperthyroidism. 7. Bronchitis. 8. Temporomandibular joint disorder by history. 9. Previous foot surgery. 10. Previous hysterectomy, tonsillectomy and removal of cyst on ovaries in the past. 11. Decreased visual acuity. 12. Multiple allergies to antibiotics as listed per patient. RECOMMENDATIONS: Options are discussed with the patient. 1. I believe that she should undergo MRI, noncontrast, of both the left hip as well as the lumbosacral spine. She does have an interesting combination of tenderness in the left lower lumbar region over the bony prominences which causes pain in the area locally as well as in the anterior groin region, left hip. In addition, she has pain in the anterior groin region with range of motion of the left hip as well, which is limited, despite negative x-rays, AP pelvis and left hip, for readily observable bony abnormalities. 2. I did recommend smoking cessation/cessation of nicotine use altogether. 3. I did recommend recheck with me after she has obtained the MRIs lumbosacral spine and left hip. 4. I did advise her I would send a copy of this note to her primary care doctor, Dr. Rios. Sincerely, Josep Cotto M.D. LIZANDRO/daniel Job #[id number] cc: Rudy Rios M.D. KENISHA
== END 2019-11-02 12:51 ==
LOC: ORHTO 12:21
PROVIDERS: ATTEND Orthopaedic Surgery
DX: M25.552 Pain in left hip (principal); I10 Essential (primary) hypertension; E03.9 Hypothyroidism, unspecified; J40 Bronchitis, not specified as acute or chronic; F17.210 Nicotine dependence, cigarettes, uncomplicated; H54.3 Unqualified visual loss, both eyes; E66.9 Obesity, unspecified; Z68.32 Body mass index [BMI] 32.0-32.9, adult; Z88.1 Allergy status to other antibiotic agents; Z98.890 Other specified postprocedural states
CPT/HCPCS: 72110; 72220; 99203